=== PATIENT | female | born 1975 | race Two or more races ===

== ENCOUNTER 2018-03-06 14:47 | Emergency (ER) | payer MEDICAID ==
[2018-03-06] MEDS ORDERED: NS 1,000 ML IV ONE (16:03)
--- NOTE | 2018-03-06 16:09 | EDPHY ---
H & P Stated Complaint: Headache, weakness, fevers, cloudy vision, neck pain, low back pain. Time Seen by Provider: 03/06/18 15:45 HPI/ROS: CHIEF COMPLAINT: Variety of complaints HISTORY OF PRESENT ILLNESS: Patient is a 43-year-old Malaysian-speaking female who flew here from [place] on Sunday. She states that the soon as she got off the airplane she noticed swelling in her feet hands and abdomen. She also has had a mild headache and states that she has cloudy vision like she does when she is not sleeping. She also complains of a mild neck stiffness. No fever but she did have sweats 2 days ago. She also complains of generalized fatigue and feeling like she is always half asleep. She states that she has been talking in her sleep. She had a sore throat 3 days ago but has not since. She also occasionally feels palpitations and today noticed that her blood pressure was slightly elevated. She is prediabetic and has prescribed diabetic medication but does not take it. She denies any trauma. She reports that this is happened twice before. Both times were after traveling cross multiple times [place]. She did not have these symptoms when she flew from [place] to [place]. She states that the previous 2 times it took her a few days of rest before she felt better. She has not had cough or shortness of breath or chest pain. No upper respiratory symptoms. Severity: Moderate Modifying factors: None REVIEW OF SYSTEMS: Constitutional: See HPI denies: chills, fever, recent illness, recent injury EENTM: See HPI denies: double vision, nose congestion Respiratory: denies: cough, shortness of breath Cardiac: denies: chest pain, irregular heart rate, lightheadedness, palpitations Gastrointestinal/Abdominal: denies: abdominal pain, diarrhea, nausea, vomiting, blood streaked stools Genitourinary: denies: dysuria, frequency, hematuria, pain Musculoskeletal: See HPI Skin: denies: lesions, rash, jaundice, bruising Neurological: denies: numbness, paresthesia, tingling, dizziness Hematologic/Lymphatic: denies: blood clots, easy bleeding, easy bruising Immunologic/allergic: denies: HIV/AIDS, transplant 10 systems reviewed and negative except as noted EXAM: GENERAL: Well-appearing, well-nourished and in no acute distress. HEAD: Atraumatic, normocephalic. EYES: Pupils equal round and reactive to light, extraocular movements intact, sclera anicteric, conjunctiva are normal. Visual acuity 20/25 in each eye ENT: TMs normal, nares patent, oropharynx clear without exudates. Moist mucous membranes. NECK: Normal range of motion, supple without lymphadenopathy or JVD. LUNGS: Breath sounds clear to auscultation bilaterally and equal. No wheezes rales or rhonchi. HEART: Regular rate and rhythm without murmurs, rubs or gallops. ABDOMEN: Soft, nontender, normoactive bowel sounds. No guarding, no rebound. No masses appreciated. BACK: No CVA tenderness, no spinal tenderness, step-offs or deformities EXTREMITIES: Normal range of motion, no pitting or edema. No clubbing or cyanosis. NEUROLOGICAL: Cranial nerves II through XII grossly intact. Normal speech, normal gait. 5/5 strength, normal movement in all extremities, normal sensation , normal reflexes PSYCH: Normal mood, normal affect. SKIN: Warm, dry, normal turgor, no visible rashes or lesions. Source: Patient Exam Limitations: Language barrier (Spiral Runner used) - Personal History Current Tetanus Diphtheria and Acellular Pertussis (TDAP): Yes - Medical/Surgical History Hx Asthma: No Hx Chronic Respiratory Disease: No Hx Diabetes: Yes Hx Cardiac Disease: No Hx Renal Disease: No Hx Cirrhosis: No Hx Alcoholism: No Hx HIV/AIDS: No Hx Splenectomy or Spleen Trauma: No Other PMH: HTN, pre-diabetes. - Family History Significant Family History: No pertinent family hx - Social History Smoking Status: Never smoked Alcohol Use: None Constitutional: Initial Vital Signs Temperature (C) 36.8 C 03/06/18 14:49 Heart Rate 121 H 03/06/18 14:49 Respiratory Rate 18 03/06/18 14:49 Blood Pressure 162/119 H 03/06/18 14:49 O2 Sat (%) 95 03/06/18 14:49 O2 Delivery Mode Room Air Allergies/Adverse Reactions: No Known Allergies Allergy (Unverified 03/06/18 14:54) Home Medications: Medication Instructions Recorded Lisinopril 03/06/18 Medical Decision Making - Diagnostics EKG Interpretation: An EKG obtained and was read and documented in trace view. Please see trace view for full reading and report. Sinus tachycardia, no acute ischemic changes Imaging: Discussed imaging studies w/ level vial setter Radiologist ED Course/Re-evaluation: The patient is well appearing. She is alert and speaks rapidly. She has no abnormal physical exam findings. Her blood pressure has decreased since arrival. She thought that initially her symptoms may be from high blood pressure or from essentially jet lag. In the past she has had similar symptoms that have resolved spontaneously. Will obtain lab work and urinalysis and visual acuity and re-evaluate. 6:20 p.m. discussed the patient's test results with her in the asl interpreter. She states that she has irregular menses but does not think she is currently menstruating. She does have some left flank pain. We agreed to obtain a CT scan to rule out for stone. Urine does not appear infected. The rest of her lab work is reassuring. Her blood pressure is now 130/80 and she states that she is feeling much better and has more strength. 7:[address] p[address] we discussed the CT results. Patient is reassured. She is feeling much better. She is eager to go home. Discussed indications for returning. She tells me now that she does work about 70 hr a week and is extremely exhausted. She thinks that may be she is simply exhausted each time she goes on vacation and then require several days to recover. This does seem reasonable. Differential Diagnosis: Partial list of the Differential diagnosis considered include but were not limited to; fatigue, Trina, dehydration, hypertension and although unlikely based on the history and physical exam, I also considered a tract infection, kidney stone, , gastroenteritis, CVA, meningitis, trauma my dissection , acute coronary disease. I discussed these differential diagnoses and the plan with the patient as well as the usual and expected course. The patient understands that the diagnosis is provisional and that in medicine we are not always correct and that further workup is often warranted. Usual and customary warnings were given. All of the patient's questions were answered. The patient was instructed to return to the emergency department should the symptoms at all worsen or return, otherwise to followup with the physician as we discussed. - Data Points Laboratory Results: Laboratory Results 03/06/18 16:30 03/06/18 16:30 Medications Given: Discontinued Medications Sodium Chloride (Ns) 1,000 mls @ 0 mls/hr IV EDNOW ONE; Wide Open PRN Reason: Protocol Stop: 03/06/18 16:04 Last Admin: 03/06/18 17:10 Dose: 1,000 mls Departure - Departure Disposition: Home, Routine, Self-Care Clinical Impression: Fatigue Qualifiers: Fatigue type: unspecified Qualified Code(s): R53.83 - Other fatigue Condition: Fair Instructions: Fatigue (ED) Referrals: NONE *PRIMARY CARE P,. [Primary Care Provider] - As per Instructions [facility] [Cl[facility]] - As per Instructions Print Language: Malaysian
--- NOTE | 2018-03-06 16:17 | CPEKG ---
Test Reason : OPEN Blood Pressure : / mmHG Vent. Rate : 108 BPM Atrial Rate : 109 BPM P-R Int : 166 ms QRS Dur : 096 ms QT Int : 322 ms P-R-T Axes : 006 -22 029 degrees QTc Int : 432 ms Sinus tachycardia Borderline left axis deviation Confirmed by Terrie Ceballos ([id number]) on 03/06/2018 4:16:42 PM Referred By: TERRIE CEBALLOS Confirmed By:Terrie Ceballos
[2018-03-06 16:43] LABS: PLATELET COUNT 375 10^3/uL (150-400)
[2018-03-06 19:24] VITALS: BP 154/110
== END 2018-03-06 19:22 | disposition home or self-care (01) ==
DX: R53.83 Other fatigue (principal); E86.9 Volume depletion, unspecified; R73.03 Prediabetes; I10 Essential (primary) hypertension